=== PATIENT | male | born 1995 | race Two or more races ===

== ENCOUNTER 2023-01-10 15:03 | Emergency (ER) | payer SELFPAY ==
[~2023-01-10] VITALS: Ht 177.8 cm; Wt 79.2 kg
[2023-01-10 16:50] VITALS: BP 131/91; PULSE 92; RESP 16; TEMP 98.5; O2SAT 97
[2023-01-10] MEDS ORDERED: IBUP-1456 PO (16:51)
[2023-01-10] MEDS ORDERED: CLIN300C70 PO (16:51)
== END 2023-01-10 16:59 | disposition home or self-care (01) ==
LOC: ER 15:03
DX: K04.7 Periapical abscess without sinus (principal); Z79.1 Long term (current) use of non-steroidal anti-inflammatories (NSAID); Z79.899 Other long term (current) drug therapy